=== PATIENT | female | born 1950 | race Hispanic/Latino ===

== ENCOUNTER → 2020-12-24 | Day surgery (SDC) | payer MEDICARE ==
[2020-12-20 15:26] LABS: BASOPHILS # (AUTO) 0.1 (0.0-0.1); BASOPHILS % 0.6 % (0.0-1.0); EOSINOPHILS # (AUTO) 0.6 (0.0-0.4); EOSINOPHILS % 5.7 % (0.0-6.0); HEMATOCRIT 41.7 % (34.2-44.1); HEMOGLOBIN 13.7 g/dL (12.0-16.0); LYMPHOCYTES # (AUTO) 2.7 (1.0-3.2); LYMPHOCYTES % 24.7 % (18.0-39.1); MEAN CORPUSCULAR HEMOGLOBIN 31.2 pg (28-32); MEAN CORPUSCULAR HGB CONC 32.9 g/dL (31-35); MONOCYTES % 9.5 % (4.4-11.3); NEUTROPHILS # (AUTO) 6.4 (2.1-6.9); PLATELET COUNT 315 x10e3/uL (140-360); RED BLOOD COUNT 4.39 x10e6/uL (3.6-5.1); RED CELL DISTRIBUTION WIDTH 14.8 % (11.7-14.4)
[2020-12-20 15:51] LABS: ANION GAP 13.1 mmol/L (8-16); CALCIUM 9.4 mg/dL (8.4-10.2); CREATININE, SERUM 1.19 mg/dL (0.57-1.11); POTASSIUM 4.1 mmol/L (3.5-5.1)
[~2020-12-24] MED LIST: ACETAMINOPHEN325 M1 PO; BUPIVACAINE HCL 0.5% INJ 30 ML VIAL INJ ONE; CEPHALEXIN500 MG PO; FENTANYL CITRATE/PF 100MCG/2 ML INJ ONE; HUMALOG MI100 UNIT/2 SQ; LEVOTHYROXINE112 MCG PO; LIPITOR10 MG PO; LOSARTAN POTAS100 MG PO; SODIUM CHLORIDE 0.9% 50ML 100 ML ONE; TRESIBA100 UNIT/1 SC; ULTRAM50 MG PO; VICTOZA 3-0.6 MG/0.1 SC; Vancomycin IV 0 MG ONE
[2020-12-24 15:35] VITALS: BP 117/59
== END | disposition home or self-care (01) ==
LOC: OR 10:41
PROVIDERS: ATTEND Specialist
DX: S97.122A Crushing injury of left lesser toe(s), initial encounter (principal); S92.532B Displaced fracture of distal phalanx of left lesser toe(s), initial encounter for open fracture; E11.9 Type 2 diabetes mellitus without complications; I10 Essential (primary) hypertension; E03.9 Hypothyroidism, unspecified; W22.8XXA Striking against or struck by other objects, initial encounter; Z88.6 Allergy status to analgesic agent; Z01.810 Encounter for preprocedural cardiovascular examination; Z01.812 Encounter for preprocedural laboratory examination; Z01.818 Encounter for other preprocedural examination; Z20.822 Contact with and (suspected) exposure to COVID-19; Z79.4 Long term (current) use of insulin; Z86.16 Personal history of COVID-19; Z87.891 Personal history of nicotine dependence
CPT/HCPCS: 28825; 36415 ×2; 71046; 76000; 80048; 82948; 85025; 93005; J0690; J3010; U0002; J3370